=== PATIENT | female | born 1990 | race Two or more races ===

== ENCOUNTER 2019-11-28 13:02 | Emergency (ER) | payer OTHER ==
[~2019-11-28] VITALS: Ht 170.2 cm; Wt 108.9 kg
[2019-11-28 13:02] VITALS: BP 119/85
[2019-11-28 14:19] LABS: APPEARANCE,URINE SLIGHTLY CLOUDY; BILIRUBIN, URINE NEGATIVE (NEGATIVE); GLUCOSE, URINE (UA) NEGATIVE (NEGATIVE); KETONES,URINE 1+ (NEGATIVE); LEUKOCYTE ESTERASE ,URINE 2+ (NEGATIVE); NITRITE,URINE NEGATIVE (NEGATIVE); PH,URINE 5 (4.5-8.0); PROTEIN,URINE 2+ (NEGATIVE); UROBILINOGEN,URINE NORMAL MG/DL (0.0-1.0)
[2019-11-28 14:21] LABS: BASOPHILS % (AUTO) 1.3 % (0.0-2.0); EOSINOPHILS % (AUTO) 1.4 % (0.0-3.0); HEMATOCRIT 41.4 % (37.0-47.0); HEMOGLOBIN 14.2 G/DL (12.0-16.0); LYMPHOCYTES % (AUTO) 31.1 % (20.0-45.0); MEAN CORPUSCULAR VOLUME 87 FL (80-99); MONOCYTES % (AUTO) 7.1 % (1.0-10.0); NEUTROPHILS % (AUTO) 59.1 % (45.0-75.0); PLATELET COUNT 314 K/UL (150-450); RED BLOOD COUNT 4.76 M/UL (4.20-5.40); RED CELL DISTRIBUTION WIDTH 11.9 % (11.6-14.8); WHITE BLOOD COUNT 11.4 K/UL (4.8-10.8)
[2019-11-28 14:22] LABS: COLOR,URINE YELLOW
[2019-11-28 14:28] LABS: INR 0.9 (0.9-1.1)
[2019-11-28 14:35] LABS: ANION GAP 8 mmol/L (5-15); BLOOD UREA NITROGEN 12 mg/dL (7-18); CARBON DIOXIDE 27 MMOL/L (21-32); CHLORIDE 103 MMOL/L (98-107); CREATININE 0.8 MG/DL (0.55-1.30); POTASSIUM 3.5 MMOL/L (3.5-5.1); SODIUM 138 MMOL/L (136-145)
[2019-11-28 14:41] LABS: ALANINE AMINOTRANSFERASE 128 U/L (12-78); ALBUMIN 3.9 G/DL (3.4-5.0); ALBUMIN/GLOBULIN RATIO 0.8 (1.0-2.7); ALKALINE PHOSPHATASE 111 U/L (46-116); ASPARTATE AMINO TRANSFERASE 40 U/L (15-37); BILIRUBIN,TOTAL 0.2 MG/DL (0.2-1.0)
[2019-11-28 15:00] VITALS: BP 123/89
--- NOTE | 2019-11-28 16:09 | Emergency Room Report ---
History of Present Illness General Chief Complaint: Vaginal Source: Patient Present Illness HPI 29 YO Female presents to the ED c/o vaginal bleeding: x 1 month. She reports 7/ 10 in severity pressure/bloated sensation in the pelvic area. She reports initially 1 month ago she began having spotting for several days which she thought was her period as it was at the correct time. Patient states that the spotting turned into thicker dark blood that was very heavy and lasted for almost 3 weeks. Patient reports that the bleeding has reduced some however she continues to have bleeding. She denies history of blood dyscrasia. She denies . She reports she is G2, P2. She denies history of fibroids. She denies personal or familial history of cancers. Patient denies taking blood thinning medications. She states she is not currently on control. She denies weakness, fatigue, dizziness, syncope/LOC/AMS. Patient denies history of anemia. She reports in the past she has had a chronic mild elevation in her liver enzymes. Patient denies history of cirrhosis, alcoholism or liver failure. Patient denies nausea, vomiting or abdominal pain/tenderness. She estimates going through approximately 2 super absorbency pads per day. She reports urinary frequency she denies urgency, hematuria or dysuria. COVID-19 risk:Contact w/high r: No COVID-19 risk:Travel to affect: No Has patient experienced castillo: Yes Coronavirus symptoms experienc: Cough, Runny Nose Allergies: Coded Allergies: No Known Allergies (Unverified , 11/28/19) Patient History Past Medical History: see triage record Pertinent Family History: none Now: No Reviewed Nursing Documentation: PMH: Agreed; PSxH: Agreed Nursing Documentation-PMH Past Medical History: No Stated History Review of Systems All Other Systems: negative except mentioned in HPI Physical Exam Vital Signs Date Time Temp Pulse Resp B/P (MAP) Pulse Ox O2 Delivery O2 Flow Rate FiO2 11/28/19 12:49 99.0 88 20 114/82 (93) 98 Room Air Sp02 EP Interpretation: reviewed, normal General Appearance: no apparent distress, alert, GCS 15, non-toxic Head: normocephalic, atraumatic Eyes: bilateral eye normal inspection, bilateral eye PERRL ENT: hearing grossly normal, normal voice Neck: full range of motion Respiratory: lungs clear, normal breath sounds, speaking full sentences Cardiovascular #1: regular rate, rhythm Gastrointestinal: normal bowel sounds, non tender, soft, non-distended, no guarding Rectal: deferred Genitourinary: normal inspection, no CVA tenderness, adnexa normal Musculoskeletal: normal range of motion, gait/station normal, non-tender Neurologic: alert, motor strength/tone normal, oriented x3, sensory intact, responsive, speech normal Psychiatric: judgement/insight normal Skin: normal color, normal inspection, other - no pallor Lymphatic: no adenopathy Medical Decision Making PA Attestation Dr. Jones is my supervising Physician whom patient management has been discussed with. Diagnostic Impression: Primary Impression: UTI (urinary tract infection) Qualified Codes: N30.01 - Acute cystitis with hematuria Additional Impression: Metrorrhagia ER Course 29 YO Female presents to the ED c/o vaginal bleeding: x 1 month. She reports 7/ 10 in severity pressure/bloated sensation in the pelvic area. She reports initially 1 month ago she began having spotting for several days which she thought was her period as it was at the correct time. Patient states that the spotting turned into thicker dark blood that was very heavy and lasted for almost 3 weeks. Patient reports that the bleeding has reduced some however she continues to have bleeding. She denies history of blood dyscrasia. She denies . She reports she is G2, P2. She denies history of fibroids. She denies personal or familial history of cancers. Patient denies taking blood thinning medications. She states she is not currently on control. She denies weakness, fatigue, dizziness, syncope/LOC/AMS. Patient denies history of anemia. She reports in the past she has had a chronic mild elevation in her liver enzymes. Patient denies history of cirrhosis, alcoholism or liver failure. Patient denies nausea, vomiting or abdominal pain/tenderness. She estimates going through approximately 2 super absorbency pads per day. She reports urinary frequency she denies urgency, hematuria or dysuria. Ddx considered but are not limited to: Fibroid, ectopic , Malignancy, Spontaneous , , DUB Vital signs: are WNL, pt. is afebrile H&PE are most consistent with: Dysfunctional uterine bleeding ORDERS: -CBC: WNL - no evidence of anemia. -CMP: elevated LFT's. -PT/PTT: WNL -Urine Hcg: Negative -UA: elevated inflammatory markers with presence of bacteria. ED INTERVENTIONS: -1 Liter NS Bolus DISCHARGE: At this time pt. is stable for d/c to home. Will provide printed patient care instructions, and any necessary prescriptions. Care plan and follow up instructions have been discussed with the patient prior to discharge. Labs Test 11/28/19 14:00 White Blood Count 11.4 K/UL (4.8-10.8) Red Blood Count 4.76 M/UL (4.20-5.40) Hemoglobin 14.2 G/DL (12.0-16.0) Hematocrit 41.4 % (37.0-47.0) Mean Corpuscular Volume 87 FL (80-99) Mean Corpuscular Hemoglobin 29.8 PG (27.0-31.0) Mean Corpuscular Hemoglobin Concent 34.2 G/DL (32.0-36.0) Red Cell Distribution Width 11.9 % (11.6-14.8) Platelet Count 314 K/UL (150-450) Mean Platelet Volume 8.2 FL (6.5-10.1) Neutrophils (%) (Auto) 59.1 % (45.0-75.0) Lymphocytes (%) (Auto) 31.1 % (20.0-45.0) Monocytes (%) (Auto) 7.1 % (1.0-10.0) Eosinophils (%) (Auto) 1.4 % (0.0-3.0) Basophils (%) (Auto) 1.3 % (0.0-2.0) Prothrombin Time 10.1 SEC (9.30-11.50) Prothromb Time International Ratio 0.9 (0.9-1.1) Activated Partial Thromboplast Time 37 SEC (23-33) Urine Color Yellow Urine Appearance Slightly cloudy Urine pH 5 (4.5-8.0) Urine Specific [place] 1.020 (1.005-1.035) Urine Protein 2+ (NEGATIVE) Urine Glucose (UA) Negative (NEGATIVE) Urine Ketones 1+ (NEGATIVE) Urine Blood 5+ (NEGATIVE) Urine Nitrite Negative (NEGATIVE) Urine Bilirubin Negative (NEGATIVE) Urine Urobilinogen Normal MG/DL (0.0-1.0) Urine Leukocyte Esterase 2+ (NEGATIVE) Urine RBC 20-30 /HPF (0 - 2) Urine WBC 5-10 /HPF (0 - 2) Urine Squamous Epithelial Cells Moderate /LPF (NONE/OCC) Urine Bacteria Few /HPF (NONE) Urine Mucus Few /LPF (NONE/OCC) Urine HCG, Qualitative Negative (NEGATIVE) Sodium Level 138 MMOL/L (136-145) Potassium Level 3.5 MMOL/L (3.5-5.1) Chloride Level 103 MMOL/L (98-107) Carbon Dioxide Level 27 MMOL/L (21-32) Anion Gap 8 mmol/L (5-15) Blood Urea Nitrogen 12 mg/dL (7-18) Creatinine 0.8 MG/DL (0.55-1.30) Estimat Glomerular Filtration Rate > 60 mL/min (>60) Glucose Level 108 MG/DL (74-106) Calcium Level 9.0 MG/DL (8.5-10.1) Total Bilirubin 0.2 MG/DL (0.2-1.0) Aspartate Amino Transf (AST/SGOT) 40 U/L (15-37) Alanine Aminotransferase (ALT/SGPT) 128 U/L (12-78) Alkaline Phosphatase 111 U/L (46-116) Total Protein 8.8 G/DL (6.4-8.2) Albumin 3.9 G/DL (3.4-5.0) Globulin 4.9 g/dL Albumin/Globulin Ratio 0.8 (1.0-2.7) Lipase 103 U/L (73-393) Last Vital Signs Date Time Temp Pulse Resp B/P (MAP) Pulse Ox O2 Delivery O2 Flow Rate FiO2 11/28/19 15:00 89 20 123/89 97 Room Air 11/28/19 13:02 99.0 Disposition: HOME, SELF-CARE Condition: Stable Scripts Iron,Carbonyl/Vit C/Vit B12/Fa (IRON 100 PLUS TABLET) 1 Each Tablet 1 EACH PO DAILY, #30 TAB Prov: Yeni Russo 11/28/19 Nitrofurantoin Monohyd/M-Cryst* (MACROBID 100 MG*) 100 Mg Capsule 100 MG ORAL EVERY 12 HOURS for 7 Days, #14 CAP Prov: Yeni Russo 11/28/19 Levonorgestrel-Eth Estradiol (LEVONORGESTREL-ETH ESTRADIOL) 1 Each Tablet 1 TAB ORAL DAILY, #1 PACK Prov: Yeni Russo 11/28/19 Referrals: [facility],REFERR[facility] (PCP) Patient Instructions: Metrorrhagia Additional Instructions: Take medications as directed. Follow up with a PCP or [employer] within 3-5 days, even if your symptoms have resolved. Return sooner to ED if new symptoms occur, or current symptoms become worse. - Please note that this Emergency Department Report was dictated using [employer] vial bending conveyor feeder technology software, occasionally this can lead to erroneous entry secondary to interpretation by the dictation equipment. Yeni Russo Nov 28, 2019 16:09
[2019-11-28] MEDS ORDERED: PROGESTERONE200 MG PO (16:10)
[2019-11-28] MEDS ORDERED: LEVONORGESTREL1 EACH ORAL (16:14)
[2019-11-28] MEDS ORDERED: NITROFURANTOIN100 M2 ORAL (16:17)
[2019-11-28] MEDS ORDERED: IRON 100 PLUS1 EACH PO (16:17)
[2019-11-28 16:20] VITALS: BP 129/84
== END 2019-11-28 16:20 | disposition home or self-care (01) ==
LOC: EDBD 13:02 → EMR 13:31
DX: N30.01 Acute cystitis with hematuria (principal); N92.1 Excessive and frequent menstruation with irregular cycle
CPT/HCPCS: 36415; 80053; 81003; 81025; 83690; 85025; 85610; 85730; 86850; 86900; 86901; 96360; Z7502; 99284